=== PATIENT | female | born 1940 | race Two or more races ===

== ENCOUNTER 2023-06-29 17:03 | Emergency (ER) | payer OTHER ==
[~2023-06-29] VITALS: Ht 149.9 cm; Wt 68.0 kg
[2023-06-29] MEDS ORDERED: TRAMADOL HCL E100 M1 (17:21)
[2023-06-29] MEDS ORDERED: SKELAGESIC (17:21)
[2023-06-29] MEDS ORDERED: ZANAFLEX2 M1 (17:21)
[2023-06-29] MEDS ORDERED: AVAPRO300 MG (17:21)
[2023-06-29] MEDS ORDERED: DICLOFENAC (17:21)
== END 2023-06-29 20:44 | disposition home or self-care (01) ==
LOC: ER 17:03
DX: M54.50 Low back pain, unspecified (principal); M41.9 Scoliosis, unspecified; I10 Essential (primary) hypertension
CPT/HCPCS: 96365; 96372; 99282; J2360; J2920